=== PATIENT | female | born 1955 | race Caucasian/White ===

== ENCOUNTER 2019-03-06 00:17 | Outpatient (CLI) | payer OTHER, SELFPAY ==
--- NOTE | 2019-03-06 15:20 | DI.CTLCSR_ITS ---
EXAM: CT CHEST LUNG CANCER SCREEN CLINICAL HISTORY: SCREENING FOR LUNG CA, Z12.2, CURRENT SMOKER, F17.210. TECHNIQUE: CT examination of the chest was performed utilizing low-dose lung cancer screening protoc ol. COMPARISON: No exams were available for comparison FINDINGS: There are severe predominantly centrilobular emphysematous changes. 5 millimeter in diameter and 4 mi llimeter in diameter right lower lobe nodules noted which are noncalcified. No additional intrapulmon eleazar nodule seen. Tracheobronchial tree appears intact. No pleural effusion. No hilar adenopathy. Images obtained through the upper abdomen show unremarkable appearance of visualized portions of live r, spleen, adrenals and kidneys. IMPRESSION: 4 millimeter and 5 millimeter in diameter right lower lobe intrapulmonary nodules, category 2, probab ly benign, follow-up LDCT recommended in 12 months. Lung RADS Cat 2 - Benign Appearance / Behavior: Nodules with a very low likelihood of becoming a clin ically active caner due to size or lack of growth.
== END 2019-03-06 00:37 ==
PROVIDERS: PCP Nurse Practitioner Family; Visit Provider Nurse Practitioner Family
DX: Z12.2 Encounter for screening for malignant neoplasm of respiratory organs (principal); F17.210 Nicotine dependence, cigarettes, uncomplicated; R91.8 Other nonspecific abnormal finding of lung field; J43.9 Emphysema, unspecified
CPT/HCPCS: G0297